=== PATIENT | female | born 1965 | race Caucasian/White ===

== ENCOUNTER 2025-02-17 15:54 | Emergency (ER) | payer BC, SELFPAY ==
--- NOTE | ~2025-02-17 | XR_ITS ---
EXAMINATION: XR chest 2V DATE: 02/17/2025 16:22 INDICATION: Cough, fatigue and shortness of breath post Covid TECHNIQUE: PA and lateral views of the chest were obtained. COMPARISON: Chest radiograph dated 11/10/13 FINDINGS: Mild linear discoid atelectasis at the lingula. No other airspace opacities, pulmonary edema, pleural effusion or pneumothorax. The cardiomediastinal silhouette is normal. Mild upper thoracic levocurvat ure and mild thoracic spondylosis. IMPRESSION: 1. Mild lingular discoid atelectasis. Reviewed, dictated and finalized at location A.
--- NOTE | 2025-02-17 16:02 | ED.URI ---
HPI - URI/Sore Throat General Chief Complaint: Upper Respiratory Infection Stated Complaint: Chest Pain/Cough Time Seen by Provider: 02/17/25 16:03 Source: patient Mode of arrival: ambulatory Limitations: no limitations History of Present Illness HPI Narrative: 59 y/o female presented for c/o pain in chest with cough, fatigue, sore throat. Pain is to the center of the chest, and endorses occasional sob with exertion. States she had covid last week and returned to work today. Has been taking Nyquil and Dayquil, Tylenol, motrin and cough drops. Denies palpitations, wheezing, n/v/d/f/c. Related Data Allergies Allergy/AdvReac Type Severity Reaction Status Date / Time No Known Allergies Allergy Verified 02/17/25 16:06 Review of Systems Review of Systems: CONSTITUTIONAL: Denies body aches, fever, chills, or sweats. EYES: Denies visual changes, redness, or discharge. ENT: reports rhinorrhea, congestion, sore throat, otalgia. CARDIOVASCULAR: Denies chest pain, palpitations, or edema. RESPIRATORY: Reports cough, denies sob, wheezing. GASTROINTESTINAL: Denies abdominal pain, nausea, vomiting, or diarrhea. SKIN: Denies rash MUSCULOSKELETAL: Denies back pain, joint pain, or myalgia. NEUROLOGIC: Denies headache, numbness, tingling, or weakness. PSYCH: Denies depression or anxiety. All systems reviewed & are unremarkable except as noted in HPI and below PMFSH Comments At time of signature, I have reviewed and agree with nursing past medical, surgical, social and family history unless otherwise noted. Please see nursing chart for further information. There is no relevant family history pertinent to the presenting complaint Exam Narrative: GENERAL: Well-appearing, in no acute distress. EYES: EOMI. No redness or drainage. Conjunctivae normal. ENT: Mucous membranes pink and moist. No rhinorrhea. TMs normal bilaterally. Throat normal. Uvula midline. NECK: Normal AROM. Supple. CHEST: No respiratory distress. Lungs clear to all alvarez. HEART: Regular rate and rhythm. No murmur appreciated. ABDOMEN: Soft, nontender, nondistended, normal active bowel sounds. EXTREMITIES: Normal range of motion. No edema. SKIN: Warm, dry, no rash. Capillary refill normal. Normal skin turgor. NEURO: Alert and oriented x3. Gait steady. PSYCH: Normal affect. Course Course Emergency Course: Patient is aware of diagnosis, understands and agrees to treatment plan. Anticipatory guidance given. Patient agrees to follow-up as directed and is aware of reasons to seek care at the emergency department. Portions of this record may have been created with voice recognition software Level of Care: Express Care Visit Vital Signs Vital signs: Vital Signs Temperature 98.3 F 02/17/25 16:04 Pulse Rate 74 02/17/25 16:04 Respiratory Rate 16 02/17/25 16:04 Blood Pressure 165/95 H 02/17/25 16:04 Pulse Oximetry 98 02/17/25 16:04 Temperature 98.3 F 02/17/25 16:04 Pulse Rate 74 02/17/25 16:04 Respiratory Rate 16 02/17/25 16:04 Blood Pressure 165/95 H 02/17/25 16:04 Pulse Oximetry 98 02/17/25 16:04 MDM - URI/Sore Throat MDM Narrative Medical decision making narrative: Discussed physical exam findings and chest x-ray at length. Reviewed prescriptions. Incentive spirometer provided and educated per RN. Advised supportive measures and signs/symptoms to go to the ER. Pt is appropriate for outpt treatment and f/u. Differential Diagnosis Differential diagnosis: Likely upper respiratory infection, sinusitis, viral infection, bronchitis, pharyngitis and other (Angioedema, perforation, asthma, pneumonia, PE, tension pneumothorax, cardiac tamponade UT, pericarditis, pleural effusion, CHF, bronchitis, cardiac arrhythmia) Imaging Data Radiologist's impression: Patient: Mira Simons : 1965 MR#: [id number] Age: 59 Acct:[id number] Loc: [facility] ADM Date: 02/17/25Attending Dr: EXAMINATION: XR chest 2V DATE: 02/17/2025 16:22 INDICATION: Cough, fatigue and shortness of breath post Covid TECHNIQUE: PA and lateral views of the chest were obtained. COMPARISON: Chest radiograph dated 11/10/13 FINDINGS: Mild linear discoid atelectasis at the lingula. No other airspace opacities, pulmonary edema, pleural effusion or pneumothorax. The cardiomediastinal silhouette is normal. Mild upper thoracic levocurvature and mild thoracic spondylosis. IMPRESSION: 1. Mild lingular discoid atelectasis. Discharge Plan Discharge Clinical Impression: Bronchitis Patient Disposition: Home Condition: Stable Instructions: Antibiotic Form, Acute Bronchitis (ED) Additional Instructions: Avoid crowds until you do not have a fever and symptoms are improved Use incentive spirometer 10 times every 1 hour while awake Take medication as directed benzonatate- as needed for cough albuterol inhaler- as needed for shortness of breath/wheezing methylprednisolone - steroid azithromycin- antibiotic Recommendations: over the counter Cough syrup may cause drowsiness; avoid driving or take it at night time. Tylenol every 8 hours as needed for pain Symptomatic treatment includes: rest, push fluids, and increase humidity of the air at home. Flonase spray and Zyrtec (or Claritin/Jennifer) if you have nasal congestion Follow up with your primary care provider as needed in 1 week Go to the ER for worsening symptoms or concerns Patient Language: Kinyarwanda Prescriptions: New azithromycin [Zithromax Z-Jian] 250 mg tablet See Rx Instructions .ROUTE .COMPLEX Qty: 6 0RF Rx Instructions: For 250 mg dose pack: take 500 mg today (day 1), then 250 mg for 4 days (days 2-5) benzonatate 200 mg capsule 200 mg PO TID PRN (Reason: cough) Qty: 20 0RF methylprednisolone [Medrol (Jian)] 4 mg tablets,dose pack See Rx Instructions .ROUTE .COMPLEX Qty: 21 0RF Rx Instructions: orally per package directions albuterol sulfate 90 mcg/actuation HFA aerosol inhaler 2 inh inhalation QID PRN (Reason: shortness of breath or wheezing) Qty: 8.5 0RF Follow-up/Referrals: Simran,MD Carola [Primary Care Provider] - Stand Alone Forms: Work/School Release IP Time of Disposition: 17:10
[2025-02-17 16:04] VITALS: BP 165/95; PULSE 74; RESP 16; TEMP 36.8; O2SAT 98
== END 2025-02-17 17:17 | disposition home or self-care (01) ==
PROVIDERS: Emergency Provider Nurse Practitioner Family; PCP Family Medicine
DX: J40 Bronchitis, not specified as acute or chronic (principal)
CPT/HCPCS: 71046; 99213; G0463